=== PATIENT | female | born 1985 | race African-American/Black ===

== ENCOUNTER → 2020-06-13 | Outpatient (CLI) | payer OTHER ==
[~2020-06-13] MED LIST: AMLO10TA8 PO; CARV6.25 PO; LISI-130 PO
== END | disposition home or self-care (01) ==
LOC: LAB 11:59
PROVIDERS: ATTEND Obstetrics & Gynecology
DX: Z11.59 Encounter for screening for other viral diseases (principal)
CPT/HCPCS: U0003-CS

== ENCOUNTER 2020-06-18 09:14 | Inpatient (IN) | payer OTHER ==
[2020-06-13 12:43] LABS: BILIRUBIN,URINE NEGATIVE (NEG); CLARITY,URINE CLEAR; COLOR,URINE YELLOW; NITRITE,URINE NEGATIVE (NEG); PROTEIN,URINE NEGATIVE (NEG-TRACE); UROBILINOGEN,URINE 0.2 mg/dL (0.2 mg/dL)
[2020-06-13 12:44] LABS: BASO # 0.1 x10^3/uL (0.0-0.2); BASO % 1 % (0-3); EOS % 10 % (0-3); HEMATOCRIT 39.5 % (36.0-47.0); HEMOGLOBIN 13.1 g/dL (12.0-15.5); LYMPH # 2.5 x10^3/uL (1.0-4.8); LYMPH % 25 % (24-48); MEAN CORPUSCULAR HEMOGLOBIN 26 pg (25-35); MEAN CORPUSCULAR HGB CONC 33 g/dL (31-37); MEAN CORPUSCULAR VOLUME 79 fL (79-100); MONO # 0.6 x10^3/uL (0.0-1.1); MONO % 6 % (0-9); NEUT # 5.8 x10^3/uL (1.8-7.7); NEUT % 59 % (31-73); PLATELET COUNT 281 x10^3/uL (140-400); RED BLOOD COUNT 4.99 x10^6/uL (3.50-5.40); RED CELL DISTRIBUTION WIDTH 18.7 % (11.5-14.5)
[2020-06-13 13:00] LABS: SQUAMOUS EPITHELIAL CELL,UR FEW /LPF
--- NOTE | 2020-06-13 13:00 | EKG ---
[facility] [address] [place] [address] Test Date: 2020-06-13 Test Time: 13:00:23 Pat Name: SRIRAM LO Department: Room: Gender: F Java Web Developer: : 1985 Requested By: ELVIA CAREY Order Number: [id number] Reading MD: Luis A Nguyen Measurements Intervals [place] Rate: 74 P: 42 NM: 156 QRS: 21 QRSD: 100 T: 48 QT: 382 QTc: 429 Interpretive Statements SINUS RHYTHM Electronically Signed On 06-16-2020 10:42:18 CDT by Luis A Nguyen
[2020-06-13 13:01] LABS: BACTERIA,URINE 0 /HPF (0-FEW); RBC,URINE 20-40 /HPF (0-2); WBC,URINE 0 /HPF (0-4)
[2020-06-13 13:03] LABS: ALBUMIN 3.5 g/dL (3.4-5.0); ALBUMIN/GLOBULIN RATIO 0.8 (1.0-1.7); CALCIUM 8.6 mg/dL (8.5-10.1); CREATININE 0.8 mg/dL (0.6-1.0); GFR 98.2; POTASSIUM 3.9 mmol/L (3.5-5.1); TOTAL BILIRUBIN 0.2 mg/dL (0.2-1.0); TOTAL PROTEIN 7.8 g/dL (6.4-8.2)
--- NOTE | 2020-06-13 14:26 | RAD ---
AP and Lateral Views of the Chest 06/13/2020 12:19 PM Indication: Reason: Pre op for cyst removal on 06/18/20 / Spl. Instructions: / History: Comparison: none Findings: There is no focal consolidation or infiltrate identified. The cardiomediastinal silhouette is within normal limits. There is no evidence of pneumothorax or pleural effusion. No acute osseous abnormalities are identified. Impression: No evidence of acute cardiopulmonary process. Electronically signed by: Silverio Castano MD (06/13/2020 2:24 PM) [id number]
[~2020-06-18] VITALS: Ht 161.3 cm; Wt 105.2 kg
[~2020-06-18 09:14] MED LIST changes: +DEXAMETHASONE SOD PHOS 4 MG/ML VIAL ONE; +IV RINGERS,LACTATED 1000ML 1,000 ML IV SCH; +LIDOCAINE 2% PF 5 ML VIAL. ONE; +MIDAZOLAM HCL/PF 2 MG/2 ML VIAL. ONE; +ONDANSETRON PF 4 MG/2 ML VIAL. IV PRN; +ONDANSETRON PF 4 MG/2 ML VIAL. ONE; +PROCHLORPERAZINE 10 MG/2 ML VIAL. IV PRN; +PROPOFOL 10 MG/ML (20ML) VIAL. IV ONE; +ROCURONIUM 50 MG/5 ML VIAL. ONE; +fentaNYL PF VIAL 100 MCG/2 ML VIAL IV PRN; +fentaNYL PF VIAL 100 MCG/2 ML VIAL ONE
[2020-06-18] MEDS ORDERED: ceFAZolin 2GM PREMIX 2 GM/50 ML BAG IV ONE (12:00)
[2020-06-18] MEDS ORDERED: fentaNYL PF VIAL 100 MCG/2 ML VIAL ONE (12:35)
[2020-06-18] MEDS ORDERED: VASOPRESSIN 20 UNIT/ML VIAL. ONE (12:48)
[2020-06-18] MEDS ORDERED: ROCURONIUM 50 MG/5 ML VIAL. ONE (12:54)
[2020-06-18] MEDS ORDERED: KETOROLAC 30 MG/ML VIAL. ONE (13:09)
[2020-06-18] MEDS ORDERED: NEOSTIGMINE METHYLSULFATE 5 MG/5 ML SYRINGE. ONE (13:20)
[2020-06-18] MEDS ORDERED: GLYCOPYRROLATE 1 MG/5 ML VIAL. ONE (13:20)
[2020-06-18] MEDS ORDERED: BUPIVACAINE-EPI 0.25%-1:200000 MPF 30 ML VIAL. ONE (13:59)
[2020-06-18] MEDS ORDERED: SEVOFLURANE > 120 MINUTES. IH ONE (14:02)
--- NOTE | 2020-06-18 14:16 | PDOC ---
BRIEF OPERATIVE NOTE Date: Jun 18, 2020 Pre-Op Diagnosis enlarged fibroid uterus, right ovarian cyst, menorrhagia Post-Op Diagnosis same Procedure Performed open laparotomy, myomectomy, excision of right ovarian cyst Surgeon Dr. Nimo Montiel Menagerie Caretaker KATHY Mcgregor Anesthesiologist Dr. Estrada Anesthesia Type: General Blood Loss 150cc IV Fluid 1100cc Urine Output 225cc clear via estevez Specimens Obtained fibroids, right ovarian cyst wall Findings enlarged fibroid uterus, on large one (at least 10cm) coming off fundus, smaller posterior one about 1cm; large 6-7cm right ovarian cyst (clear straw colored fluid) Complications none Operative Note [id number] NIMO MONTIEL MD Jun 18, 2020 14:16
[2020-06-18] MEDS: MORPHINE SULFATE 2 MG/ML VIAL. IV PRN ×2 (14:25→14:28)
[2020-06-18] MEDS ORDERED: CALCIUM CARBONATE 500 MG TAB.CHEW PO PRN (14:30)
[2020-06-18] MEDS ORDERED: diphenhydrAMINE HCL 25 MG CAPSULE PO PRN (14:30)
[2020-06-18] MEDS ORDERED: HYDROcodone/APAP 5/325MG 1 TAB TABLET PO PRN (14:30)
[2020-06-18] MEDS ORDERED: diphenhydrAMINE 50 MG/ML VIAL IV PRN (14:30)
[2020-06-18] MEDS ORDERED: LACTULOSE 20 GM/30 ML SOLUTION. PO PRN (14:30)
[2020-06-18] MEDS ORDERED: 0.9 % SODIUM CHLORIDE 10 ML DISP.SYRIN. IV PRN (14:30)
[2020-06-18] MEDS ORDERED: MORPHINE SULFATE 2 MG/ML VIAL. IV PRN (14:30)
[2020-06-18] MEDS ORDERED: SIMETHICONE 80 MG TAB.CHEW PO PRN (14:30)
[2020-06-18] MEDS ORDERED: ONDANSETRON PF 4 MG/2 ML VIAL. IV PRN (14:30)
[2020-06-18] MEDS ORDERED: NALOXONE 0.4 MG/ML VIAL. IV PRN (14:30)
[2020-06-18] MEDS ORDERED: ZOLPIDEM 5 MG TABLET. PO PRN (14:30)
[2020-06-18] MEDS ORDERED: MAG HYDROX/ALUMINUM HYD/SIMETH 30 ML ORAL.SUSP PO PRN (14:30)
[2020-06-18] MEDS ORDERED: HYDROmorphone 2 MG/ML VIAL ONE (14:31)
[2020-06-18] MEDS: HYDROmorphone 2 MG/ML VIAL IV PRN ×4 (14:35→14:52)
--- NOTE | 2020-06-18 15:35 | OP ---
DATE OF SURGERY: 06/18/2020 PREOPERATIVE DIAGNOSES: Enlarged fibroid uterus and a large 7 cm right ovarian cyst with menorrhagia. PROCEDURE: Open laparotomy, myomectomy and excision of right ovarian cyst. SURGEON: Elvia Montiel MD BOILER TESTING TECHNICIAN: KATHY Modi. ANESTHESIOLOGIST: Dr. Estrada. ANESTHESIA: General. ESTIMATED BLOOD LOSS: 150 mL. URINE OUTPUT: 225 mL clear via Anton catheter. INTRAVENOUS FLUIDS: 1100 mL of crystalloid. SPECIMEN: The fibroids and right ovarian cyst wall. FINDINGS: She had an enlarged fibroid uterus with one very large and at least 10-12 cm coming off the fundus of the uterus, also a smaller posterior one about a cm. She also had a large 6-7 cm right ovarian cyst that had clear straw-colored fluid in it. COMPLICATIONS: None. DESCRIPTION OF PROCEDURE: This patient was taken to the operating room where general anesthesia was placed. She was placed in dorsal supine position. Her abdomen was prepped and draped in the normal sterile fashion and a Anton catheter had been inserted under sterile technique. Upon my arrival, a timeout was performed. Once everyone agreed on the patient, the site, the procedure, the procedure was initiated. A Pfannenstiel skin incision was made with the scalpel. Bovie cautery was used to obtain hemostasis in the subcuticular layer. The fascia was scored in the midline and extended sharply and bluntly bilaterally. Oziel clamps x 2 were placed on the superior fascial edge and the fascia was dissected from the rectus muscles beneath sharply and bluntly. This was done inferiorly as well. The rectus muscles were in the midline and the peritoneum was digitally and bluntly entered. The patient was placed in a tiny bit of Trendelenburg and 2 moist laps were used to pack away the bowel. The fundal fibroid was found and was easily brought through the abdominal incision. The large right ovarian cyst, could be seen as well. The left tube and ovary were normal. The right tube was normal, but the right ovary was enlarged with a 6-7 cm clear straw-colored fluid cyst. The uterus itself down past the large fundal fibroid, actually had a normal cornua on both sides where the tubes and ovaries came in. Bladder was okay. There were some adhesions of the bowel to the front and back. These were taken down sharply with the Metzenbaums. They were clear and filmy to the fundus of the uterus. Once these were taken down, again the uterus could be exteriorized and again the left tube and ovary normal, right tube was normal, right ovary had a cyst. I got vasopressin 20 and 400 mL of injectable saline diluted down and I injected some of that at the fundus of the uterus and in the fundal fibroid and then in the posterior fibroid. There was a small 1 cm, one coming off the back of the uterus, but the remainder looked good. There were no obvious adhesions. No other large fibroids. So the posterior one was easily cut off, chromic was used to stitch it up. It was very superficial and kind of exophytic. The larger one, Bovie cautery was used to incise it. Mignon clamps were placed on either side and Metzenbaums were used to go in and create the space. Towel clip was placed on the fibroid and it was dissected from beneath. It was closed in 2 or 3-layer closure with chromic ____ of the fundus and then 2 layers of chromic and then a 3-0 Vicryl on the top in a running locked fashion, then an imbricating stitch was placed over the top as well. Once all this was done, cautery was used to go between the ovary and the cyst, the cyst wall was easily seen. Suction was used to suck out the straw-colored fluid. The cyst wall was peeled off and then chromic in a running locked fashion was used to close the ovary as well on the right side. I actually did the ovary first, then inject it, then did the fundal fibroid, then did the posterior fibroid, sewed the posterior fibroid and then sewed the fundal fibroid in that order, but everything went great, put it back in. The imbricating stitch that final one was put after I put it in, it just was slightly oozy on the incision line on the left. So I pulled it out, put an imbricating stitch over the top with excellent results. Placed it back in the abdominal cavity. I did irrigate before putting the uterus back in with warm saline and the pool suction. There was nothing in the posterior cul-de-sac, welling up at all. It was placed back in. At this time, it actually had no bleeding at all. It looked great. I could see the incision line in there and it looked good. The right and left pericolic gutters were examined and clear. The two laps, that were in, were removed. It was examined again and the abdominal cavity and was dry. The right and left pericolic gutters were clear and the subcuticular layer was examined, but the cautery had been used on the way in to obtain hemostasis and it was very dry. So 0 Vicryl was used to close the fascia. Once it was done, it was from left to midline, right to midline and tied together and then I used 3-0 Vicryl to close the Keila's subcuticular layer and karan were used on the skin. She was injected with 20 mL of 0.25% Marcaine and epinephrine in the incision line and then was awakened from anesthesia and brought to recovery room in stable condition. ELVIA MONTIEL MD DR: STEPHAN/nikko JOB#: [id number] / [id number]
[2020-06-18 16:30] VITALS: BP 115/60
[2020-06-18 17:00] VITALS: BP 107/65
[2020-06-18 17:30] VITALS: BP 107/67
[2020-06-18 19:44] VITALS: BP 103/61
[2020-06-18 20:00] VITALS: BP 110/67
[2020-06-18] MEDS: KETOROLAC 30 MG/ML VIAL. IVP PRN (21:51)
[2020-06-19 00:04] VITALS: BP 107/61
[2020-06-19] MEDS: KETOROLAC 30 MG/ML VIAL. IVP PRN (03:48)
[2020-06-19 03:51] VITALS: BP 109/66
[2020-06-19 05:06] LABS: CALCIUM 7.9 mg/dL (8.5-10.1); CREATININE 0.8 mg/dL (0.6-1.0); GFR 98.2; POTASSIUM 3.9 mmol/L (3.5-5.1)
[2020-06-19 09:00] VITALS: BP 109/66
--- NOTE | 2020-06-19 10:20 | PDOC ---
SURGICAL PROGRESS NOTE Subjective Doing well. Tolerating regular diet, no n/v. Still has catheter right now Vital Signs Vital Signs Date Time Temp Pulse Resp B/P (MAP) Pulse Ox O2 Delivery O2 Flow Rate FiO2 06/19/20 03:51 98.3 77 16 109/66 (80) 96 Room Air 98.3 06/18/20 14:52 10.0 I&O Intake and Output 06/19/20 07:00 Intake Total 2180 ml Output Total 2100 ml Balance 80 ml Intake Oral 430 ml IV Total 1750 ml Output Urine Total 1950 ml Estimated Blood Loss 150 ml PATIENT HAS A ESTEVEZ: Yes General: Alert, Oriented X3, Cooperative, No acute distress HEENT: Atraumatic Heart: Regular rate Abdomen: Soft, No tenderness, No masses Extremities: No clubbing, No cyanosis, No edema, No tenderness/swelling Skin: No rashes, No breakdown, No significant lesion Psych/Mental Status: Mental status NL, Mood NL Labs Laboratory Tests Test 06/18/20 09:35 06/19/20 03:30 Bedside Urine HCG, Qualitative Hcg negative (Negative) Hematocrit 30.7 % (36.0-47.0) Sodium Level 138 mmol/L (136-145) Potassium Level 3.9 mmol/L (3.5-5.1) Chloride Level 105 mmol/L (98-107) Carbon Dioxide Level 25 mmol/L (21-32) Anion Gap 8 (6-14) Blood Urea Nitrogen 8 mg/dL (7-20) Creatinine 0.8 mg/dL (0.6-1.0) Estimated GFR (Cockcroft-Gault) 98.2 Glucose Level 174 mg/dL (70-99) Calcium Level 7.9 mg/dL (8.5-10.1) Laboratory Tests Test 06/19/20 03:30 Hematocrit 30.7 % (36.0-47.0) Sodium Level 138 mmol/L (136-145) Potassium Level 3.9 mmol/L (3.5-5.1) Chloride Level 105 mmol/L (98-107) Carbon Dioxide Level 25 mmol/L (21-32) Anion Gap 8 (6-14) Blood Urea Nitrogen 8 mg/dL (7-20) Creatinine 0.8 mg/dL (0.6-1.0) Estimated GFR (Cockcroft-Gault) 98.2 Glucose Level 174 mg/dL (70-99) Calcium Level 7.9 mg/dL (8.5-10.1) I have reviewed the following labs, vitals, nursing Cardiovascular: HTN Pulmonary: No pertinent hx Heme/Onc: No pertinent hx Psych: No pertinent hx Rheumatologic: No pertinent hx Infectious disease: No pertinent hx Assessment/Plan POD#1 s/p open myomectomy and right ovarian cystectomy Routine po care ambulate and d/c estevez today Justicifation of Admission Dx: Justifications for Admission: Justification of Admission Dx: Yes ELVIA CAREY MD Jun 19, 2020 10:20
[2020-06-19] MEDS: oxyCODONE/APAP 5/325 1 TAB TABLET PO PRN ×2 (12:19→20:20)
[2020-06-19] MEDS: MAGNESIUM HYDROXIDE 2,400 MG/30 ML ORAL.SUSP. PO PRN (12:20)
[2020-06-19 12:58] VITALS: BP 144/86
[2020-06-19 20:19] VITALS: BP 145/92
[2020-06-20 00:27] VITALS: BP 124/75
[2020-06-20] MEDS: oxyCODONE/APAP 5/325 1 TAB TABLET PO PRN ×3 (00:31→10:16)
--- NOTE | 2020-06-20 00:44 | NUR ---
Manually entered administration of Percocet for 06/19/2020 for 2019, when scanned earlier it did not save.
[2020-06-20] MEDS: MAGNESIUM HYDROXIDE 2,400 MG/30 ML ORAL.SUSP. PO PRN (06:07)
[2020-06-20 06:12] VITALS: BP 130/83
[2020-06-20 09:00] VITALS: BP 148/92
--- NOTE | 2020-06-20 12:54 | PDOC ---
SURGICAL PROGRESS NOTE Subjective Doing well without complaints. some VB, abd pain only when up and moving. Tolerating regular diet without n/v. +flatus and voiding without catheter. Able to get up and ambulate without assistance Vital Signs Vital Signs Date Time Temp Pulse Resp B/P (MAP) Pulse Ox O2 Delivery O2 Flow Rate FiO2 06/20/20 10:16 18 Room Air 06/20/20 09:00 98.6 96 148/92 (110) 97 98.6 I&O Intake and Output 06/20/20 07:00 Intake Total 400 ml Output Total 600 ml Balance -200 ml Blood Product IV Normal Saline Flush 400 ml Output Urine Total 600 ml # Voids 2 PATIENT HAS A LÓPEZ: No General: Alert, Oriented X3, Cooperative, No acute distress HEENT: Atraumatic Heart: Regular rate Abdomen: Soft, Other (mildly tender; incision c/d/i with karan) Extremities: No clubbing, No cyanosis, No edema, No tenderness/swelling Neuro: Normal speech Psych/Mental Status: Mental status NL, Mood NL Labs Laboratory Tests Test 06/19/20 03:30 Hematocrit 30.7 % (36.0-47.0) Sodium Level 138 mmol/L (136-145) Potassium Level 3.9 mmol/L (3.5-5.1) Chloride Level 105 mmol/L (98-107) Carbon Dioxide Level 25 mmol/L (21-32) Anion Gap 8 (6-14) Blood Urea Nitrogen 8 mg/dL (7-20) Creatinine 0.8 mg/dL (0.6-1.0) Estimated GFR (Cockcroft-Gault) 98.2 Glucose Level 174 mg/dL (70-99) Calcium Level 7.9 mg/dL (8.5-10.1) I have reviewed the following labs, vitals, nursing Cardiovascular: HTN Assessment/Plan POD#1 s/p open myomectomy with right ovarian cyst excision Routine po care d/c to home NPV x 6 weeks light/limited activity x 2 weeks keep scheduled follow up with me as scheduled NO driving on narcotics hydrocodone written for home for pain meds may alternate OTC ibuprofen as needed also call or return sooner for any other questions or concerns not limited to but including pain unrelieved with pain meds, increased or unexplained vag bleeding, T>100.4 Justicifation of Admission Dx: Justifications for Admission: Justification of Admission Dx: Yes ELVIA CAREY MD Jun 20, 2020 12:54
--- NOTE | 2020-06-20 12:56 | PDOC3 ---
Discharge Summary Visit Information Date of Admission: Jun 18, 2020 Date of Discharge: Jun 20, 2020 Final Diagnosis uterine fibroids, menorrhagia, right ovarian cyst Brief Hospital Course Allergies Allergies Coded Allergies Type Severity Reaction Last Updated Verified No Known Drug Allergies 06/18/20 No Vital Signs Vital Signs Date Time Temp Pulse Resp B/P (MAP) Pulse Ox O2 Delivery O2 Flow Rate FiO2 06/20/20 10:16 18 Room Air 06/20/20 09:00 98.6 96 148/92 (110) 97 98.6 Lab Results Laboratory Tests Test 06/19/20 03:30 Hematocrit 30.7 % (36.0-47.0) Sodium Level 138 mmol/L (136-145) Potassium Level 3.9 mmol/L (3.5-5.1) Chloride Level 105 mmol/L (98-107) Carbon Dioxide Level 25 mmol/L (21-32) Anion Gap 8 (6-14) Blood Urea Nitrogen 8 mg/dL (7-20) Creatinine 0.8 mg/dL (0.6-1.0) Estimated GFR (Cockcroft-Gault) 98.2 Glucose Level 174 mg/dL (70-99) Calcium Level 7.9 mg/dL (8.5-10.1) Brief Hospital Course Ms. Neri is a 34 old female who presented with menorrhagia and large uterine fibroids, also large right ovarian cyst. She underwent an open myomectomy and excision of right ovarian cyst without complications. she has had an unremarkable postoperative course and is doing well. AFVSS. Ambulating well, tolerating regular diet, voiding without catheter, +flatus. Assessment Assessment POD#1 s/p open myomectomy with right ovarian cyst excision Routine po care d/c to home NPV x 6 weeks light/limited activity x 2 weeks keep scheduled follow up with me as scheduled NO driving on narcotics hydrocodone written for home for pain meds may alternate OTC ibuprofen as needed also call or return sooner for any other questions or concerns not limited to but including pain unrelieved with pain meds, increased or unexplained vag bleeding, T>100.4 Discharge Information Scheduled Amlodipine Besylate (Amlodipine Besylate) 10 Mg Tablet, 10 MG PO DAILY for HTN, (Reported) Entered as Reported by: KAY GASTON on 06/13/20 1229 Last Taken: Unknown Dose on 06/18/20799 Last Action: Last Taken Edited on 06/18/20934 by MARIA T GIBSON Carvedilol (Coreg ) 6.25 Mg Tablet, 6.25 MG PO BIDWMEALS for CARDIAC, (Re ported) Entered as Reported by: KAY GASTON on 06/13/201228 Last Taken: Unknown Dose on 06/18/20799 Last Action: Last Taken Edited on 06/18/20934 by MARIA T GIBSON Lisinopril (Lisinopril) 40 Mg Tablet, 40 MG PO DAILY for FOR HYPERTENSION, #30 Ref 0 (Reported) Entered as Reported by: KAY GASTON on 06/13/201228 Last Taken: Unknown Dose on 06/17/20 Last Action: Last Taken Edited on 06/18/20934 by MARIA T GIBSON Justicifation of Admission Dx: Justifications for Admission: Justification of Admission Dx: Yes ELVIA CAREY MD Jun 20, 2020 12:56
[2020-06-20 13:40] VITALS: BP 143/90
--- NOTE | 2020-06-20 15:08 | PATHOLOGY ---
[facility] Accession Number: [id number] . 01 Material submitted: . ovary - RIGHT OVARIAN CYST WALL AND UTERINE FIBROIDS. Modifiers: right . 01 Clinical history: . Fibroids and ovarian cyst. . 02 Diagnosis: Segments (2) of myometrium, open myomectomy: - Leiomyomas, the largest measuring 10.0 cm. . Segments of ovarian tissue, right ovarian cystectomy: - Follicular cyst showing focal hemorrhage and regressive changes. - Few small cystic follicles. . (JP:mm; 06/20/2020) [facility] 06/20/2020 1410 Local . 02 Comment: There is no evidence of malignancy. . (JPM:mm; 06/20/2020) . 02 Electronically signed: . Manjit Brennan MD, Pathologist NPI- [id number] . 01 Gross description: . Received in formalin labeled "Segun Neri, right ovarian cyst wall and uterine fibroids" are two gibson-white nodular leiomyomata weighing in aggregate 237 g and measuring 1.6 and 10.0 cm in greatest dimension. Upon sectioning, the cut surfaces are gibson-white and whorled without hemorrhage or necrosis. Also present are two portions of pink-gibson membranous cyst wall weighing in aggregate 5 g and measuring 5.1 and 8.1 cm in greatest dimension. The average wall thickness is 0.1-0.2 cm. Papillary excrescences are not identified. Ovarian parenchyma is not present. Court Advocate sections are submitted as follows: A1-A3 leiomyomata A4-A5 cyst wall ([facility] [place]; 06/19/2020) SYC/C 06/19/2020 1331 Local . 02 Pathologist provided ICD-10: D25.9, N83.01 . 02 CPT . 545422 Specimen Comment: A courtesy copy of this report has been sent to [phone], [phone] Specimen Comment: [id number] Specimen Comment: Report sent to / DR BRANHAM Performed at: 01 [facility] [address], [place] [id number] MD Edvin Hess MD Phone: [phone] Performed at: 02 [facility] [address] [place], [place] [id number] MD Manjit Brennan MD Phone: [phone]
== END 2020-06-20 13:50 | disposition home or self-care (01) | DRG 742 ==
LOC: OPSVCIP 09:14 → EDSTATUS 10:30 → 3 NORTH 15:53
PROVIDERS: ADMIT Obstetrics & Gynecology; ATTEND Obstetrics & Gynecology
PROC: 0UB90ZZ Excision of Uterus, Open Approach (ICD-10-PCS; 2020-06-18)
PROC: 0UB00ZZ Excision of Right Ovary, Open Approach (ICD-10-PCS; principal; 2020-06-18 10:30)
DX: D25.9 Leiomyoma of uterus, unspecified (principal); D62 Acute posthemorrhagic anemia; N92.0 Excessive and frequent menstruation with regular cycle; N83.201 Unspecified ovarian cyst, right side; I10 Essential (primary) hypertension; K66.0 Peritoneal adhesions (postprocedural) (postinfection); Z79.899 Other long term (current) drug therapy
CPT/HCPCS: 36415; 71046; 80048; 80053; 81001; 81025; 85014; 85025; 86850; 86900; 86901; 88305; 93005; A7015; J0690; J0780; J1100; J1170; J1885; J2250; J2270; J2405; J2704; J2710; J3010; J3480; J3490; J7120; A4461; G0378

== ENCOUNTER 2020-10-06 16:40 | Inpatient (IN) | payer OTHER ==
[~2020-10-06] VITALS: Ht 160 cm; Wt 96.3 kg
[~2020-10-06 16:40] MED LIST changes: +AMLO-187 PO; -AMLO10TA8 PO; -DEXAMETHASONE SOD PHOS 4 MG/ML VIAL ONE; -IV RINGERS,LACTATED 1000ML 1,000 ML IV SCH; -LIDOCAINE 2% PF 5 ML VIAL. ONE; -MIDAZOLAM HCL/PF 2 MG/2 ML VIAL. ONE; -ONDANSETRON PF 4 MG/2 ML VIAL. IV PRN; -ONDANSETRON PF 4 MG/2 ML VIAL. ONE; -PROCHLORPERAZINE 10 MG/2 ML VIAL. IV PRN; -PROPOFOL 10 MG/ML (20ML) VIAL. IV ONE; -ROCURONIUM 50 MG/5 ML VIAL. ONE; -fentaNYL PF VIAL 100 MCG/2 ML VIAL IV PRN; -fentaNYL PF VIAL 100 MCG/2 ML VIAL ONE
[2020-10-06] MEDS ORDERED: IV NORMAL SALINE 1000ML BAG 1,000 ML IV SCH (17:06)
[2020-10-06] MEDS ORDERED: IV NORMAL SALINE 1000ML BAG 1,000 ML IV ONE (17:30)
[2020-10-06] MEDS ORDERED: ONDANSETRON PF 4 MG/2 ML VIAL. IVP ONE (17:30)
[2020-10-06 17:33] LABS: BASO # 0.1 x10^3/uL (0.0-0.2); BASO % 1 % (0-3); EOS # 0.4 x10^3/uL (0.0-0.7); EOS % 5 % (0-3); HEMOGLOBIN 13.6 g/dL (12.0-15.5); LYMPH # 3.1 x10^3/uL (1.0-4.8); LYMPH % 36 % (24-48); MEAN CORPUSCULAR HEMOGLOBIN 25 pg (25-35); MEAN CORPUSCULAR HGB CONC 33 g/dL (31-37); MEAN CORPUSCULAR VOLUME 76 fL (79-100); MONO # 0.5 x10^3/uL (0.0-1.1); MONO % 5 % (0-9); NEUT # 4.5 x10^3/uL (1.8-7.7); NEUT % 53 % (31-73); PLATELET COUNT 261 x10^3/uL (140-400); RED BLOOD COUNT 5.42 x10^6/uL (3.50-5.40); RED CELL DISTRIBUTION WIDTH 15.2 % (11.5-14.5); WHITE BLOOD COUNT 8.5 x10^3/uL (4.0-11.0)
--- NOTE | 2020-10-06 17:36 | PHYS DOC ---
Past Medical History Past Medical History: Diabetes-Type II, Hypertension (BARBER ROBLES APRN) Past Surgical History: Other Additional Past Surgical Histo: MYOMECTOMY (BARBER ROBLES APRN) Smoking Status: Never Smoker Alcohol Use: Occasionally (BARBER ROBLES APRN) General Adult EDM: Chief Complaint: BLOOD SUGAR PROBLEM HPI: HPI: Patient is a 35 year old female who presents with sent in by Dr. Ibarra her primary care which started the patient on Metformin on Tuesday. Patient states she has been having dizziness, headache, nausea, urinary frequency, excessive thirst. Dr. Ibarra talked to Dr. Boland and stated that her blood sugar tested over 500 at the doctor's office. Patient denies any pain at this time, chest pain, shortness of breath, abdominal pain, vomiting, diarrhea, syncope, vision changes, headache, focal weakness, numbness or tingling. (BARBER ROBLES JACK SETTER) Review of Systems: Review of Systems: Constitutional: Denies fever or chills. [] Eyes: Denies change in visual acuity. [] HENT: Denies nasal congestion or sore throat. + Excessive thirst [] Respiratory: Denies cough or shortness of breath. [] Cardiovascular: Denies chest pain or edema. [] GI: Denies abdominal pain. + nausea, denies vomiting, bloody stools or diarrhe a. [] : Denies dysuria. + Excessive urination [] Musculoskeletal: Denies back pain or joint pain. [] Integument: Denies rash. [] Neurologic: + Dizziness, denies headache, focal weakness or sensory changes. [] Endocrine: Denies polyuria or polydipsia. [] Lymphatic: Denies swollen glands. [] Psychiatric: Denies depression or anxiety. [] (BARBER ROBLES JACK SETTER) Heart Score: Risk Factors: Risk Factors: DM, Current or recent (<one month) smoker, HTN, HLP, family history of CAD, obesity. Risk Scores: Score 0 - 3: 2.5% MACE over next 6 weeks - Discharge Home Score 4 - 6: 20.3% MACE over next 6 weeks - Admit for Clinical Observation Score 7 - 10: 72.7% MACE over next 6 weeks - Early Invasive Strategies (BAFBARBER YIN APRN) Current Medications: Current Medications Medications (Trade) Dose Ordered Sig/Gulshan Start Time Stop Time Status Last Admin Dose Admin Ondansetron HCl (Zofran) 4 mg 1X ONCE 10/06/20 17:30 10/06/20 17:31 Sodium Chloride 1,000 ml @ 1,000 mls/hr Q1H 10/06/20 17:06 10/06/20 18:05 (BARBER ROBLES APRN) Allergies: Allergies: Allergies Coded Allergies Type Severity Reaction Last Updated Verified No Known Drug Allergies 06/18/20 No (BARBER ROBLES APRN) Physical Exam: PE: Constitutional: Well developed, well nourished, no acute distress, non-toxic appearance. [] HENT: Normocephalic, atraumatic, bilateral external ears normal, oropharynx moist, no oral exudates, nose normal. [] Eyes: PERRLA, EOMI, conjunctiva normal, no discharge. [] Neck: Normal range of motion, no tenderness, supple, no stridor. [] Cardiovascular:Heart rate regular rhythm, no murmur [] Lungs & Thorax: Bilateral breath sounds clear to auscultation [] Abdomen: Bowel sounds normal, soft, no tenderness, no masses, no pulsatile masses. [] Skin: Warm, dry, no erythema, no rash. [] Back: No tenderness, no CVA tenderness. [] Extremities: No tenderness, no cyanosis, no clubbing, ROM intact, no edema. [] Neurologic: Alert and oriented X 3, normal motor function, normal sensory function, no focal deficits noted. [] Psychologic: Affect normal, judgement normal, mood normal. Normal physical exam [] (BARBER ROBLES APRN) Current Patient Data: Vital Signs: Vital Signs Date Time Temp Pulse Resp B/P (MAP) Pulse Ox O2 Delivery O2 Flow Rate FiO2 10/06/20 17:00 96.5 101 166/119 (135) 98 96.5 (BARBER ROBLES APRN) EKG: EKG: [] (BARBER ROBLES APRN) Radiology/Procedures: Radiology/Procedures: [] (BARBER ROBLES APRN) Course & Med Decision Making: Course & Med Decision Making Pertinent Labs and Imaging studies reviewed. (See chart for details) See HPI. Alert and oriented x4. Ambulatory with a steady gait. Skin pink warm and dry. Speaks in full complete sentences. Abdomen soft and nontender. Lungs are clear to auscultation all lobes. Afebrile. I have started the patient on 2 L of normal saline in the ED. 1735: Patient comes out of her room upset that there is a blood to left in her room. She is also upset that there is some blood left on her skin around her IV site and she wants it cleaned up and states is making her sick to her stomach. I have told Velma RN who is going into room to help the patient. I spoken to Dr. Ibarra and she states to admit the patient. Patient has hyperglycemia but there is no anion gap and her acetone is negative. She is gotten 2 L of normal saline and 9 units of regular insulin. [] (BARBER ROBLES APRN) Dragon Disclaimer: Dragon Disclaimer: This electronic medical record was generated, in whole or in part, using a voice recognition dictation system. (BARBER ROBLES APRN) Departure Departure Impression: Primary Impression: Hyperglycemia due to diabetes mellitus Disposition: ADMITTED INPT THIS HOSP Admitting Physician: Kizzy Ibarra (BARBER ROBLES APRN) Condition: STABLE Referrals: KIZZY IBARRA MD (PCP) Attending Signature Attending Signature I have reviewed the PA/[employer] F[employer] SPECIALIST's note and plan of care. I was available for consultation as needed during the patient's visit in the emergency department. I agree with the clinical impression, plan, and disposition. (KARLI BOLAND DO) BARBER ROBLES APRN Oct 06, 2020 17:36 KARLI BOLAND DO Oct 07, 2020 06:45
[2020-10-06 17:52] LABS: ALBUMIN 3.4 g/dL (3.4-5.0); ALBUMIN/GLOBULIN RATIO 0.8 (1.0-1.7); CALCIUM 9.1 mg/dL (8.5-10.1); GFR 75.5; POTASSIUM 4.2 mmol/L (3.5-5.1); TOTAL BILIRUBIN 0.2 mg/dL (0.2-1.0); TOTAL PROTEIN 7.5 g/dL (6.4-8.2)
[2020-10-06] MEDS ORDERED: INSULIN REGULAR 100 UNIT/ML 3ML VIAL. IV ONE (18:00)
[2020-10-06] MEDS ORDERED: ONDANSETRON PF 4 MG/2 ML VIAL. IV PRN (18:30)
[2020-10-06 20:30] VITALS: BP 170/111
[2020-10-06] MEDS ORDERED: METF500T16 PO (20:57)
[2020-10-06] MEDS ORDERED: NAPROXEN 500 MG TABLET PO PRN (21:00)
[2020-10-06] MEDS ORDERED: ACETAMINOPHEN 325 MG TABLET. PO PRN (21:00)
[2020-10-06] MEDS ORDERED: HYDROcodone/APAP 5/325MG 1 TAB TABLET PO PRN (21:00)
[2020-10-06 21:05] LABS: BILIRUBIN,URINE NEGATIVE (NEG); CLARITY,URINE CLEAR; COLOR,URINE YELLOW; NITRITE,URINE NEGATIVE (NEG); PH,URINE 5.5 (<5.0-8.0); PROTEIN,URINE NEGATIVE (NEG-TRACE); UROBILINOGEN,URINE 0.2 mg/dL (0.2 mg/dL)
[2020-10-06 21:09] LABS: BACTERIA,URINE FEW /HPF (0-FEW); RBC,URINE TNTC /HPF (0-2); WBC,URINE OCC /HPF (0-4)
[2020-10-06] MEDS ORDERED: INSULIN GLARGINE SYRINGE. SQ SCH (21:30)
[2020-10-06] MEDS: LISINOPRIL 20 MG TABLET PO SCH (21:49)
[2020-10-06] MEDS: CARVEDILOL 6.25 MG TABLET. PO SCH (21:50)
[2020-10-06 22:45] VITALS: BP 145/90
[2020-10-07 02:45] VITALS: BP 135/82
[2020-10-07 07:00] VITALS: BP 137/85
--- NOTE | 2020-10-07 08:01 | PDOC1 ---
H & P. DATE OF SERVICE: DATE: 10/07/20 TIME: 07:51 HPI: Ms. Neri is a 35 yo female with PMH of hypertension, depression, anxiety, who presented to clinic yesterday and was found to have new diagnosis of severely uncontrolled type 2 diabetes. She reported significant symptoms of polydipsia polyuria, nausea, vomiting, malaise. She was seen in the emergency room at [facility] 2 days ago and was placed on metformin 500 mg twice daily. She reports that this has made her increasingly nauseous. Her A1c in clinic was 14.4. She admits confusion and reports that her blood sugars are usually too high to read on her glucometer. She has been without her blood pressure medications for the last 24 hours, which explains why her blood pressures were severely uncontrolled on presentation. She was admitted for further evaluation and management of hypertensive urgency and severely uncontrolled diabetes with features of hyperosmolar hyperglycemic state. ROS: Constitutional: Denies fever, chills; Admits fatigue HEENT: Denies sore throat, vision changes Cardio: Denies chest pain, dyspnea with exertion, syncope, palpitations, edema Pulmonary: Denies shortness of breath, cough, wheezing GI: Admits nausea, vomiting, denies diarrhea, constipation : Denies dysuria, admits polyuria, frequency Skin: Denies new lesions Neuro: Denies weakness, paresthesias; admits intermittent confusion PMH: As above FAMILY HX: Mom has diabetes. Maternal grandfather had diabetes. Son has autism spectrum disorder. SOCIAL HX: Never smoker, no significant alcohol or drug use. SURGICAL HX: Myomectomy for fibroids and right ovarian cyst removal on 06/18/2020. MEDS: Reviewed and reconciled ALLERGIES: Reviewed PE: Alert, oriented, no acute distress EOMI, sclera non-icteric Neck supple RRR, no murmur CTAB, no wheezes, crackles or rhonchi Soft, mildly tender in b/l lower quadrants, ND, normal bowel sounds, no rebound, guarding. No edema, cyanosis. Normal capillary refill. Calm, cooperative, mood/affect within normal limits ASSESSMENT & PLAN: Hyperosmolar hyperglycemic state Hypertensive urgency New diagnosis of uncontrolled Type 2 Diabetes, A1C 14.4% Microcytosis without anemia, secondary to resolving iron deficiency anemia Pseudohyponatremia secondary to elevated blood sugars Patient has been given IV fluid resuscitation, started on long-acting and mealtime insulin. Repeat 1L NS bolus and start IV fluids, repeat bmp and mg Zofran for nausea Plan to start Metformin later as outpatient, once symptoms have improved Will likely require insulin long-term Brief diabetes education discussed Already on TOMMY inhibitor for renal protection Justifications for Admission Other Justification TRUSTLaura,KIZZY Okeefe MD Oct 07, 2020 08:01
[2020-10-07] MEDS: CARVEDILOL 6.25 MG TABLET. PO SCH ×2 (08:18→17:37)
[2020-10-07] MEDS: INSULIN LISPRO 300 UNITS/3 ML VIAL. SQ SCH ×2 (08:24→12:06)
[2020-10-07] MEDS ORDERED: IV NORMAL SALINE 1000ML BAG 1,000 ML IV ONE (09:00)
[2020-10-07 10:54] VITALS: BP 128/86
[2020-10-07 11:08] LABS: CALCIUM 8.3 mg/dL (8.5-10.1); CREATININE 0.7 mg/dL (0.6-1.0); GFR 113.9; MAGNESIUM 1.8 mg/dL (1.8-2.4); POTASSIUM 3.8 mmol/L (3.5-5.1)
--- NOTE | 2020-10-07 12:05 | NUR ---
SW following. Discussed with RN, pt from home with family, room air, ada diet. Pt struggling with uncontrolled diabetes. RN advised no SW needs at this time.SW will continue to follow.
[2020-10-07] MEDS: tiZANidine 4 MG TABLET. PO PRN ×2 (13:14→21:27)
[2020-10-07] MEDS: IV NORMAL SALINE 1000ML BAG 1,000 ML IV SCH ×2 (13:15→17:47)
[2020-10-07] MEDS: HYDROcodone/APAP 5/325MG 1 TAB TABLET PO PRN ×2 (13:15→21:29)
[2020-10-07 14:35] VITALS: BP 140/78
[2020-10-07] MEDS ORDERED: INSULIN LISPRO 300 UNITS/3 ML VIAL. SQ SCH (17:00)
[2020-10-07 19:00] VITALS: BP 133/88
[2020-10-07] MEDS ORDERED: INSULIN GLARGINE SYRINGE. SQ SCH (21:00)
[2020-10-07] MEDS ORDERED: amLODIPine BESYLATE 10 MG TABLET PO SCH (21:00)
[2020-10-07] MEDS: LISINOPRIL 20 MG TABLET PO SCH (21:28)
[2020-10-07 23:00] VITALS: BP 115/43
[2020-10-08] MEDS: IV NORMAL SALINE 1000ML BAG 1,000 ML IV SCH ×2 (00:56→08:30)
[2020-10-08 03:00] VITALS: BP 151/55
[2020-10-08 07:00] VITALS: BP 140/83
--- NOTE | 2020-10-08 07:06 | RAD ---
Complete Abdominal Ultrasound: Clinical History: Reason: abd pain; NPO AFTER MIDNIGHT PERFORM US TOMORROW PER NURSE 1330 / Spl. Instructions: / History: Technique: Sonographic examination of the abdomen was performed and multiple static images were obtained. Findings: Liver: The majority is visualized and there is increased echogenicity which further limits ultrasound sensitivity for possible solid liver lesion. There is a 2.8 x 3.0 x 3.3 cm hypoechoic area near the cem hepatis. The liver measures 20 cm in length. Common bile duct: Not well seen. Gallbladder: appears normal. Portal vein: Appears normal. Pancreas: is not well visualized due to overlying bowel gas. Right kidney: Is seen without hydronephrosis and measures 13 cm in length. There is a 2 cm parapelvic cyst. Left kidney appears normal and measures 12 cm in length. Spleen: Not enlarged. There are calcified granuloma. Impression: 1. No evidence of gallbladder disease. 2. Hepatomegaly. 3. Solid mass versus focal fatty sparing in the liver near the cem hepatis. Recommend correlation with alpha-fetoprotein and follow-up multiphase MR examination. Electronically signed by: Raul Dominguez III, MD (10/08/2020 7:02 AM) [facility]
--- NOTE | 2020-10-08 08:11 | PDOC ---
SUBJECTIVE Subjective Feeling better this am. Cramps in legs improving. OBJECTIVE Objective Reviewed. Vital Signs Vital Signs Date Time Temp Pulse Resp B/P (MAP) Pulse Ox O2 Delivery O2 Flow Rate FiO2 10/08/20 07:00 98.2 79 18 140/83 (102) 98 Room Air 98.2 10/08/20 03:00 98.2 81 18 151/55 (87) 98 Room Air 98.2 10/07/20 23:00 97.9 76 18 115/43 (67) 98 Room Air 97.9 10/07/20 22:29 Room Air 10/07/20 21:29 Room Air 10/07/20 21:28 73 133/88 10/07/20 21:28 73 133/88 10/07/20 20:10 Room Air 10/07/20 19:00 98.4 73 18 133/88 (103) 97 Room Air 98.4 10/07/20 17:37 73 140/78 10/07/20 14:35 98.4 73 18 140/78 (98) 98 Room Air 98.4 10/07/20 14:15 Room Air 10/07/20 13:15 Room Air 10/07/20 10:54 98.2 84 18 128/86 (100) 98 Room Air 98.2 10/07/20 08:18 71 137/85 10/07/20 08:18 Room Air I & O Intake and Output 10/08/20 07:00 Intake Total 650 ml Balance 650 ml Intake Oral 650 ml # Voids 5 PHYSICAL EXAM Physical Exam Alert, oriented, no acute distress EOMI, sclera non-icteric Neck supple RRR, no murmur CTAB, no wheezes, crackles or rhonchi Soft, mildly tender in b/l lower quadrants, ND, normal bowel sounds, no rebound, guarding. No edema, cyanosis. Normal capillary refill. Calm, cooperative, mood/affect within normal limits ASSESSMENT/PLAN Assessment/Plan Hyperosmolar hyperglycemic state, resolved Hypertensive urgency, resolved New diagnosis of uncontrolled Type 2 Diabetes, A1C 14.4% Hepatomegaly and possible liver mass on US vs focal fatty sparring Microcytosis without anemia, secondary to resolving iron deficiency anemia Pseudohyponatremia secondary to elevated blood sugars, improving Abd US performed this AM d/t abd discomfort, found possible liver mass vs focal fatty sparing in the liver near the cem hepatis. Recommended correlation with alpha-fetoprotein and follow-up multiphase MR examination. Get GI input to see if this should be worked up now or as outpt. Plan to start Metformin later as outpatient, once symptoms have improved Increased meal and night time insulin Pending GI input and how pt is doing this afternoon, may be able to dc this afternoon or tomorrow COMMENT Lab Laboratory Tests Test 10/07/20 10:36 10/07/20 11:04 10/07/20 16:21 10/07/20 20:37 Sodium Level 132 mmol/L (136-145) Potassium Level 3.8 mmol/L (3.5-5.1) Chloride Level 99 mmol/L (98-107) Carbon Dioxide Level 25 mmol/L (21-32) Anion Gap 8 (6-14) Blood Urea Nitrogen 5 mg/dL (7-20) Creatinine 0.7 mg/dL (0.6-1.0) Estimated GFR (Cockcroft-Gault) 113.9 Glucose Level 361 mg/dL (70-99) Calcium Level 8.3 mg/dL (8.5-10.1) Magnesium Level 1.8 mg/dL (1.8-2.4) Glucose (Fingerstick) 360 mg/dL (70-99) 321 mg/dL (70-99) 382 mg/dL (70-99) Test 10/08/20 06:51 Glucose (Fingerstick) 272 mg/dL (70-99) Justifications for Admission Other Justification KIZZY BRANHAM MD Oct 08, 2020 08:10
[2020-10-08] MEDS: CARVEDILOL 6.25 MG TABLET. PO SCH ×2 (08:27→17:24)
[2020-10-08] MEDS: INSULIN LISPRO 300 UNITS/3 ML VIAL. SQ SCH ×3 (08:28→17:32)
[2020-10-08] MEDS ORDERED: INSU100V35 SQ (09:04)
[2020-10-08] MEDS ORDERED: INSU100V8 SQ (09:04)
--- NOTE | 2020-10-08 09:21 | PDOC2 ---
GI CONSULT Date of Service: DATE: 10/08/20 TIME: 09:21 Reason For Consult: liver mass? on US HPI: HPI: 35 y/o female ill for 2-3 weeks w/ polydipsia, polyuria, fatigue, n/v, and weight loss (20 lb). New diagnosis of DM last week, A1c 14.4 Had abd US which noted hepatomegaly w/ solid mass near cem hepatis vs focal fatty sparing and we are asked to see for this. LFTs normal except Alk Phos 154. Also normal Hgb w/ MCV 76. GI-mendoza, n/v was a new symptom and has resolved. Also had some abdominal pain - varying locations, occurred randomly - has also resolved. H/o reflux - takes OTC medications PRN (can't name one specifically - "any of them"). No dysphagia, hematemesis, diarrhea, constipation, hematochezia, and melena. No previous EGD or colonoscopy. No GB, liver, pancreas, or PUD history. No regular use of NSAIDs. PMH: PMH: HTN, DM, depression/anxiety, GERD myomectomy and excision of right ovarian cyst FH: Family History: Cancer (PGM - breast), DM Social History: Smoke: No ALCOHOL: occassional Drugs: None ROS: GEN: Denies fevers, chills, sweats HEENT: Denies blurred vision, sore throat CV: Denies chest pain RESP: Denies shortness of air, cough GI: Per HPI : +polyuria ENDO: +weight loss NEURO: Denies confusion, dizziness MSK: +leg cramps SKIN: Denies jaundice, pruritus Vitals: Vitals: Vital Signs Date Time Temp Pulse Resp B/P (MAP) Pulse Ox O2 Delivery O2 Flow Rate FiO2 10/08/20 08:27 79 140/83 10/08/20 08:00 Room Air 10/08/20 07:00 98.2 18 98 98.2 Labs: Labs: Laboratory Tests Test 10/07/20 10:36 10/07/20 11:04 10/07/20 16:21 10/07/20 20:37 Sodium Level 132 mmol/L (136-145) Potassium Level 3.8 mmol/L (3.5-5.1) Chloride Level 99 mmol/L (98-107) Carbon Dioxide Level 25 mmol/L (21-32) Anion Gap 8 (6-14) Blood Urea Nitrogen 5 mg/dL (7-20) Creatinine 0.7 mg/dL (0.6-1.0) Estimated GFR (Cockcroft-Gault) 113.9 Glucose Level 361 mg/dL (70-99) Calcium Level 8.3 mg/dL (8.5-10.1) Magnesium Level 1.8 mg/dL (1.8-2.4) Glucose (Fingerstick) 360 mg/dL (70-99) 321 mg/dL (70-99) 382 mg/dL (70-99) Test 10/08/20 06:51 Glucose (Fingerstick) 272 mg/dL (70-99) Allergies: Coded Allergies: No Known Drug Allergies (Unverified , 06/18/20) Medications: Current Medications Medications (Trade) Dose Ordered Sig/Gulshan Route PRN Reason Start Time Stop Time Status Last Admin Dose Admin Amlodipine Besylate (Norvasc) 10 mg QHS PO 10/07/20 21:00 10/07/20 21:28 Insulin Glargine (Lantus Syringe) 25 unit QHS SQ 10/07/20 21:00 10/08/20 08:07 DC 10/07/20 21:34 Acetaminophen/ Hydrocodone Bitart (Lortab 5/325) 1 tab PRN Q4HRS PRN PO PAIN 10/07/20 12:45 10/07/20 21:29 Tizanidine HCl (Zanaflex) 4 mg PRN Q8HRS PRN PO MUSCLE SPASMS 10/07/20 12:45 10/07/20 21:27 Insulin Human Lispro (HumaLOG) 8 units TIDAC SQ 10/07/20 17:00 10/08/20 08:07 DC 10/07/20 17:42 Insulin Human Lispro (HumaLOG) 12 units TIDAC SQ 10/08/20 08:15 10/08/20 08:28 Imaging: Imaging: Abd US Liver: The majority is visualized and there is increased echogenicity which further limits ultrasound sensitivity for possible solid liver lesion. There is a 2.8 x 3.0 x 3.3 cm hypoechoic area near the cem hepatis. The liver measures 20 cm in length. Common bile duct: Not well seen. Gallbladder: appears normal. Portal vein: Appears normal. Pancreas: is not well visualized due to overlying bowel gas. Right kidney: Is seen without hydronephrosis and measures 13 cm in length. There is a 2 cm parapelvic cyst. Left kidney appears normal and measures 12 cm in length. Spleen: Not enlarged. There are calcified granuloma. Impression: 1. No evidence of gallbladder disease. 2. Hepatomegaly. 3. Solid mass versus focal fatty sparing in the liver near the cem hepatis. Recommend correlation with alpha-fetoprotein and follow-up multiphase MR examination. PE: GEN: NAD HEENT: Atraumatic, PERRL LUNGS: CTAB HEART: RRR ABD: NABS, S/ND/NT EXTREMITY: No edema SKIN: No rashes, no jaundice NEURO/PSYCH: A & O 3 A/P: A/P: New DM N/v, abd pain - resolved Weight loss Microcytosis, elevated Alk Phos Abnormal liver imaging - US w/ hepatomegaly, solid mass vs focal fatty sparing GERD CRC screen - average risk -- Plan for outpt MRI - our office will call to arrange. Will add acid-ditch tender - consider regular use for her h/o GERD not controlled w/ PRN OTC medications. Check iron profile re: microcytosis and AFP per recommendation on US report. Consider EGD as outpt for h/o GERD. DC per Dr. Ibarra. ENRRIQUE PATTERSON Oct 08, 2020 09:21
[2020-10-08] MEDS: tiZANidine 4 MG TABLET. PO PRN (09:46)
[2020-10-08] MEDS: HYDROcodone/APAP 5/325MG 1 TAB TABLET PO PRN (09:46)
[2020-10-08] MEDS ORDERED: PANTOPRAZOLE 40 MG TABLET.DR. PO SCH (10:00)
--- NOTE | 2020-10-08 10:29 | NUR ---
SW following. Discussed with RN, pt from home with family, room air, ada diet. GI consulted - recommending outpatient MRI and outpatient EGD. Per Dr. Ibarra's note pt could possible discharge this afternoon if doing better. RN advised no SW needs. SW will continue to follow.
[2020-10-08 10:45] VITALS: BP 150/97
[2020-10-08 14:28] VITALS: BP 148/93
--- NOTE | 2020-10-08 17:08 | PDOC3 ---
Discharge Summary Date of Admission: Oct 06, 2020 Date of Discharge: Oct 08, 2020 Admitting Diagnosis comment: Severe hyperglycemia Concern for Hyperosmolar Hyperglycemic State Nausea Vomiting FINAL DIAGNOSIS Hyperosmolar Hyperglycemic State New diagnosis of severely uncontrolled Type 2 Diabetes Hypertensive Urgency Abdominal Pain Possible liver mass seen on US Brief Hospital Course Ms. Neri is a 35 yo female with PMH of hypertension, depression, anxiety, who presented to clinic on day of admission and was found to have new diagnosis of severely uncontrolled type 2 diabetes. She reported significant symptoms of polydipsia, polyuria, nausea, vomiting, malaise. Her A1c in clinic was 14.4%. She also admitted confusion. She was treated with meal-time and long-acting insulin and her blood sugars improved to the 200-300 range. She was given copious IV fluids and her malaise and vomiting improved. She complained of abdominal pain, so an Abdominal US was performed which showed no evidence for gallbladder disease, but found hepatomegaly and a solid mass versus focal fatty sparing in the liver near the cem hepatis. GI was consulted and they believe this could represent BRUCE, HCC, hepatic adenoma, and/or image artifact. An AFP was found to be normal. She will follow up with GI and have an MRI performed to get more information. Her labs were also remarkable for mild microcytosis which is consistent with her resolving iron deficiency anemia caused by fibroids that were removed 06/09 by OBGYN. She was sent home with glucometer, test strips and lancets, Lantus and Humalog. She received diabetes education. She will follow up next week with MULUGETA Ty, in our office to adjust insulin doses then follow up with myself in 2 weeks. In the future we will add metformin and likely a GLP- 1 in an effort to decrease or remove her need for insulin. Her other medications were unchanged. CONDITION AT DISCHARGE: Improved, Stable Discharge Medications Active Scripts Active Reported Coreg (Carvedilol) 6.25 Mg Tablet 6.25 Mg PO BIDWMEALS Lisinopril 40 Mg Tablet 40 Mg PO DAILY Amlodipine Besylate 10 Mg Tablet 10 Mg PO DAILY Lantus 30U QHS Humalog 12U TIDAC Vital Signs Vital Signs Date Time Temp Pulse Resp B/P (MAP) Pulse Ox O2 Delivery O2 Flow Rate FiO2 10/08/20 14:28 98.0 72 18 148/93 (111) 98 Room Air 98.0 Labs Laboratory Tests Test 10/06/20 17:22 10/06/20 17:44 10/06/20 20:30 10/06/20 20:59 White Blood Count 8.5 x10^3/uL (4.0-11.0) Red Blood Count 5.42 x10^6/uL (3.50-5.40) Hemoglobin 13.6 g/dL (12.0-15.5) Hematocrit 41.0 % (36.0-47.0) Mean Corpuscular Volume 76 fL (79-100) Mean Corpuscular Hemoglobin 25 pg (25-35) Mean Corpuscular Hemoglobin Concent 33 g/dL (31-37) Red Cell Distribution Width 15.2 % (11.5-14.5) Platelet Count 261 x10^3/uL (140-400) Neutrophils (%) (Auto) 53 % (31-73) Lymphocytes (%) (Auto) 36 % (24-48) Monocytes (%) (Auto) 5 % (0-9) Eosinophils (%) (Auto) 5 % (0-3) Basophils (%) (Auto) 1 % (0-3) Neutrophils # (Auto) 4.5 x10^3/uL (1.8-7.7) Lymphocytes # (Auto) 3.1 x10^3/uL (1.0-4.8) Monocytes # (Auto) 0.5 x10^3/uL (0.0-1.1) Eosinophils # (Auto) 0.4 x10^3/uL (0.0-0.7) Basophils # (Auto) 0.1 x10^3/uL (0.0-0.2) Sodium Level 127 mmol/L (136-145) Potassium Level 4.2 mmol/L (3.5-5.1) Chloride Level 93 mmol/L (98-107) Carbon Dioxide Level 21 mmol/L (21-32) Anion Gap 13 (6-14) Blood Urea Nitrogen 7 mg/dL (7-20) Creatinine 1.0 mg/dL (0.6-1.0) Estimated GFR (Cockcroft-Gault) 75.5 BUN/Creatinine Ratio 7 (6-20) Glucose Level 554 mg/dL (70-99) Plasma/Serum Osmolality 290 mOsmol/kg (275-295) Calcium Level 9.1 mg/dL (8.5-10.1) Total Bilirubin 0.2 mg/dL (0.2-1.0) Aspartate Amino Transf (AST/SGOT) 19 U/L (15-37) Alanine Aminotransferase (ALT/SGPT) 21 U/L (14-59) Alkaline Phosphatase 154 U/L (46-116) Total Protein 7.5 g/dL (6.4-8.2) Albumin 3.4 g/dL (3.4-5.0) Albumin/Globulin Ratio 0.8 (1.0-1.7) Lipase 244 U/L (73-393) Acetone Level Neg (NEG) Glucose (Fingerstick) 533 mg/dL (70-99) 362 mg/dL (70-99) Urine Collection Type Unknown Urine Color Yellow Urine Clarity Clear Urine pH 5.5 (<5.0-8.0) Urine Specific Hiller >=1.030 (1.000-1.030) Urine Protein Negative mg/dL (NEG-TRACE) Urine Glucose (UA) >=1000 mg/dL (NEG) Urine Ketones (Stick) 15 mg/dL (NEG) Urine Blood Large (NEG) Urine Nitrite Negative (NEG) Urine Bilirubin Negative (NEG) Urine Urobilinogen Dipstick 0.2 mg/dL (0.2 mg/dL) Urine Leukocyte Esterase Negative (NEG) Urine RBC Tntc /HPF (0-2) Urine WBC Occ /HPF (0-4) Urine Squamous Epithelial Cells Few /LPF Urine Bacteria Few /HPF (0-FEW) Urine Mucus Slight /LPF Test 10/07/20 07:14 10/07/20 10:36 10/07/20 11:04 10/07/20 16:21 Glucose (Fingerstick) 268 mg/dL (70-99) 360 mg/dL (70-99) 321 mg/dL (70-99) Sodium Level 132 mmol/L (136-145) Potassium Level 3.8 mmol/L (3.5-5.1) Chloride Level 99 mmol/L (98-107) Carbon Dioxide Level 25 mmol/L (21-32) Anion Gap 8 (6-14) Blood Urea Nitrogen 5 mg/dL (7-20) Creatinine 0.7 mg/dL (0.6-1.0) Estimated GFR (Cockcroft-Gault) 113.9 Glucose Level 361 mg/dL (70-99) Calcium Level 8.3 mg/dL (8.5-10.1) Magnesium Level 1.8 mg/dL (1.8-2.4) Test 10/07/20 20:37 10/08/20 06:51 10/08/20 11:14 10/08/20 13:40 Glucose (Fingerstick) 382 mg/dL (70-99) 272 mg/dL (70-99) 243 mg/dL (70-99) Iron Level 25 ug/dL (50-170) Total Iron Binding Capacity 318 ug/dL (250-450) Iron Saturation 8 % (15-34) Test 10/08/20 16:52 Glucose (Fingerstick) 360 mg/dL (70-99) Laboratory Tests Test 10/07/20 20:37 10/08/20 06:51 10/08/20 11:14 10/08/20 13:40 Glucose (Fingerstick) 382 mg/dL (70-99) 272 mg/dL (70-99) 243 mg/dL (70-99) Iron Level 25 ug/dL (50-170) Total Iron Binding Capacity 318 ug/dL (250-450) Iron Saturation 8 % (15-34) Test 10/08/20 16:52 Glucose (Fingerstick) 360 mg/dL (70-99) Allergies Allergies Coded Allergies Type Severity Reaction Last Updated Verified No Known Drug Allergies 06/18/20 No Disposition/Orders: D/C to Home Justicifation of Admission Dx: Justifications for Admission: Justification of Admission Dx: Yes KIZZY BRANHAM MD Oct 08, 2020 17:08
[2020-10-08 17:24] VITALS: BP 148/93
--- NOTE | 2020-10-08 18:13 | NUR ---
PT DISCHARGED HOME WITH SELF CARE. DISCHARGE INSTRUCTIONS AND PRESCRIPTIONS DISCUSSED. CALLED IN GLUCOMETER TO [facility] IN [place]. IV REMOVED. PT AMBULATED TO ENTRANCE AND WAS SECURED IN CAR WITH MOM.
[2020-10-08] MEDS ORDERED: INSULIN GLARGINE SYRINGE. SQ SCH (21:00)
== END 2020-10-08 18:24 | disposition home or self-care (01) | DRG 639 ==
LOC: ER 16:40 → ED HOLD 18:23 → 4 NORTH 20:22
PROVIDERS: ADMIT Family Medicine; ATTEND Family Medicine
DX: E11.00 Type 2 diabetes mellitus with hyperosmolarity without nonketotic hyperglycemic-hyperosmolar coma (NKHHC) (principal); I10 Essential (primary) hypertension; F32.9 Major depressive disorder, single episode, unspecified; F41.9 Anxiety disorder, unspecified; I16.0 Hypertensive urgency; D50.9 Iron deficiency anemia, unspecified; E11.65 Type 2 diabetes mellitus with hyperglycemia; K76.89 Other specified diseases of liver; K21.9 Gastro-esophageal reflux disease without esophagitis; R16.0 Hepatomegaly, not elsewhere classified; R63.4 Abnormal weight loss; Z68.37 Body mass index [BMI] 37.0-37.9, adult; Z80.3 Family history of malignant neoplasm of breast; Z83.3 Family history of diabetes mellitus
CPT/HCPCS: 36415; 76700; 80048; 80053; 81001; 82010; 82105; 82962; 83540; 83550; 83690; 83735; 83930; 85025; 96361; 96374; 96375; 99285; J1815; J2405; J7030; G0378